=== PATIENT | female | born 1970 | race Caucasian/White ===

== ENCOUNTER 2019-11-19 05:24 | Day surgery (SDC) | payer OTHER ==
[2019-11-14 10:05] LABS: HEMATOCRIT 43.8 % (36.0-47.0); MEAN CORPUSCULAR HEMOGLOBIN 30.6 pg (27.0-33.4); MEAN CORPUSCULAR HGB CONC 34.3 g/dL (32.0-36.0); MEAN CORPUSCULAR VOLUME 89 fl (80-97); PLATELET COUNT 272 10^3/uL (150-450); RED BLOOD COUNT 4.92 10^6/uL (3.72-5.28); RED CELL DISTRIBUTION WIDTH 13.5 % (11.5-14.0); WHITE BLOOD COUNT 5.8 10^3/uL (4.0-10.5)
[2019-11-14 10:15] LABS: APPEARANCE,URINE SLIGHTLY-CLOUDY; BILIRUBIN,URINE NEGATIVE (NEGATIVE); COLOR,URINE AMBER; GLUCOSE, URINE NEGATIVE (NEGATIVE); KETONES,URINE TRACE mg/dL (NEGATIVE); LEUKOCYTE ESTERASE,URINE TRACE (NEGATIVE); NITRITE,URINE NEGATIVE (NEGATIVE); PROTEIN,URINE 30 mg/dL (NEGATIVE); URINE SPECIFIC GRAVITY 1.023
[2019-11-14 10:27] LABS: ANION GAP 6 (5-19); BLOOD UREA NITROGEN 9 mg/dL (7-20); CALCIUM 9.5 mg/dL (8.4-10.2); CARBON DIOXIDE 31 mmol/L (22-30); CHLORIDE 100 mmol/L (98-107); GLUCOSE 96 mg/dL (75-110); POTASSIUM 4.6 mmol/L (3.6-5.0)
--- NOTE | 2019-11-14 16:44 | EKG REPORT ---
SEVERITY:- BORDERLINE ECG - SINUS RHYTHM BORDERLINE T ABNORMALITIES, ANTERIOR LEADS : Confirmed by: Doni Avalos MD 14-Nov-2019 16:43:18
[~2019-11-19 05:24] MED LIST: LACTATED RINGERS 1000 ML IV PRN; LIDOCAINE 0.5% INJ-PF (5 MG/ML) 50 ML SDV SUBCUT PRN; LIDOCAINE 1%/EPINEPHRINE INJ 20 ML VIAL ONE
[2019-11-19] MEDS ORDERED: CEFAZOLIN 1 GM/D5W RTU 1 GM/50 ML RTUPB IV ONE (05:31)
[2019-11-19] MEDS ORDERED: KETAMINE HCL INJ 500 MG/10 ML VIAL ONE (06:47)
[2019-11-19] MEDS ORDERED: FENTANYL CITRATE INJ/PF 100 MCG/2 ML AMPUL ONE (06:47)
[2019-11-19] MEDS ORDERED: MIDAZOLAM 2 MG/2 ML INJ ONE (06:48)
[2019-11-19] MEDS ORDERED: EPHEDRINE SULFATE INJ 50 MG/1 ML AMPULE ONE (06:48)
[2019-11-19] MEDS ORDERED: HYDROMORPHONE HCL INJ/PF 2 MG/ML AMPULE ONE (06:49)
[2019-11-19] MEDS ORDERED: PROPOFOL INJ 200 MG/20 ML VIAL IV ONE ×2 (06:50→09:01)
[2019-11-19] MEDS ORDERED: SCOPOLAMINE HYDROBROMIDE 1.5 MG PATCH.TD72 ONE (07:03)
[2019-11-19] MEDS ORDERED: DIPHENHYDRAMINE HCL 50 MG/ML VIAL IV PRN (07:52)
[2019-11-19] MEDS ORDERED: MEPERIDINE HCL/PF INJ 25 MG/1 ML DISP.SYRIN IV PRN (07:52)
[2019-11-19] MEDS ORDERED: ONDANSETRON HCL INJ/PF 4 MG/2 ML SDV IV PRN (07:52)
[2019-11-19] MEDS ORDERED: OXYCODONE-ACETAMINOPHEN 5-325 MG TABLET PO PRN ×2 (07:52)
[2019-11-19] MEDS ORDERED: FENTANYL CITRATE INJ/PF 100 MCG/2 ML AMPUL IV PRN ×3 (07:52)
[2019-11-19] MEDS ORDERED: SUGAMMADEX SODIUM 200 MG/2 ML SDV IV ONE (07:53)
[2019-11-19] MEDS ORDERED: HYDROMORPHONE HCL INJ/PF 2 MG/ML AMPULE IV PRN (07:55)
--- NOTE | 2019-11-19 08:48 | Operative Report ---
Operative Report DATE OF SURGERY: 11/19/19 PREOPERATIVE DIAGNOSIS: Post ablation syndrome with pain POSTOPERATIVE DIAGNOSIS: Same OPERATION: Total vaginal hysterectomy, Slaughter culdoplasty SURGEON: SIVAKUMAR LAUREN ANESTHESIA: GA TISSUE REMOVED OR ALTERED: Cervix uterus COMPLICATIONS: None ESTIMATED BLOOD LOSS: 80 mL's INTRAOPERATIVE FINDINGS: Normal-appearing uterus cervix tubes and ovaries PROCEDURE: INDICATIONS FOR PROCEDURE: The patient had unreasonable uterine bleeding despite multiple outpatient management. She desired attempt at definitive therapy. The usual risks of bleeding, infection, anesthesia, and damage to organs or tissues was discussed with the patient who understood, and she desires attempt at definitive therapy. PROCEDURE: The patient was taken to the operating room. The patient was placed in modified lithotomy position. Adequate anesthesia was ascertained. She was prepped and draped in the usual manner for a vaginal hysterectomy. EUA was performed after a time out was performed and antibiotics had been given. Bladder was drained under sterile technique. The posterior vagina was retracted with a weighted speculum and a Reinoso speculum was used anteriorly. The posterior colpotomy incision was made, local infiltration of the area afterwards with 1% with epinephrine lidocaine was instilled with good hemostasis noted at this point. The uterosacral ligaments were crossclamped, cut, suture ligated, and held. The cervix was circumscribed. The bladder was advanced sequentially throughout this aspect of the procedure with LigaSure device used for hemostasis bilaterally. The anterior cul-de-sac was entered without difficulty. A [place] retractor was placed within the peritoneal cavity and the pedicles were identified and crossclamped and held. The cervix and uterus were handed off the operative field. The pedicles were noted to be dry. The ovaries were visually normal. The Slaughter culdoplasty suture was placed and held, and the vagina was closed in an anterior to posterior fashion with #1 chromic catgut used throughout the case. Good hemostasis was noted. The vagina was irrigated. The bladder was drained of a small amount of urine at the completion of the case. All sponge and needle counts were correct.
[2019-11-19] MEDS: FENTANYL CITRATE INJ/PF 100 MCG/2 ML AMPUL ONE ×2 (09:12→09:17)
[2019-11-19] MEDS ORDERED: ONDANSETRON HCL INJ/PF 4 MG/2 ML SDV ONE ×2 (09:16→13:55)
[2019-11-19] MEDS ORDERED: MORPHINE INJ 6 MG DOSE (EDIT ROUTE) INJ PRN (09:30)
[2019-11-19] MEDS ORDERED: PROMETHAZINE HCL INJ 25 MG/1 ML VIAL IM PRN (09:30)
[2019-11-19] MEDS ORDERED: MORPHINE INJ 4 MG DOSE (EDIT ROUTE) INJ PRN (09:30)
[2019-11-19] MEDS ORDERED: MORPHINE INJ 8 MG DOSE IM PRN (09:30)
[2019-11-19] MEDS: OXYCODONE-ACETAMINOPHEN 5-325 MG TABLET PO PRN ×2 (11:34→21:19)
[2019-11-19] MEDS: CEFAZOLIN 1 GM RTU (EDIT START TIME) IV SCH ×2 (11:37→17:29)
[2019-11-19] MEDS ORDERED: LIDOCAINE 2% INJ-PF (20 MG/ML) 2 ML AMPUL ONE (13:55)
[2019-11-19] MEDS ORDERED: DIPHENHYDRAMINE HCL 50 MG/ML VIAL ONE (13:55)
[2019-11-19] MEDS ORDERED: DEXAMETHASONE SOD PHOSPHATE INJ 4 MG/1 ML VIAL ONE (13:55)
[2019-11-19] MEDS ORDERED: ROCURONIUM BROMIDE INJ 50 MG/5 ML VIAL IV ONE (13:55)
[2019-11-19] MEDS ORDERED: KETOROLAC TROMETHAMINE 60 MG/2 ML SDV ONE (13:55)
[2019-11-19] MEDS ORDERED: PHENYLEPHRINE HCL INJ/PF 10 MG/1 ML SDV ONE (13:55)
[2019-11-19] MEDS: IBUPROFEN 800 MG TABLET PO SCH ×2 (15:03→21:18)
[2019-11-20] MEDS: IBUPROFEN 800 MG TABLET PO SCH (05:15)
[2019-11-20 08:38] VITALS: BP 110/70
== END 2019-11-20 10:01 | disposition home or self-care (01) ==
LOC: OROUT 05:24 → 2N 09:50 → OROUT 11-20 10:01
PROVIDERS: ATTEND Specialist
DX: N99.85 Post endometrial ablation syndrome (principal); N87.0 Mild cervical dysplasia; N80.0 Endometriosis of uterus; Y83.8 Other surgical procedures as the cause of abnormal reaction of the patient, or of later complication, without mention of misadventure at the time of the procedure; N94.5 Secondary dysmenorrhea; D68.51 Activated protein C resistance; Z03.818 Encounter for observation for suspected exposure to other biological agents ruled out
CPT/HCPCS: 93005; 86900; 86901; 36415; 86850; 85027; 87635; 81025; 80048; 81001; 88307 ×2; 93010; 00944; 58260; C1758; J2250; J0690; J3490 ×4; J1100; J1200; J1885; J3010; J2270; J2370; J2405; J2704; C9803; 944; J1170